=== PATIENT | male | born 1940 | race Caucasian/White ===

== ENCOUNTER 2017-11-01 14:53 | Emergency (ER) | payer MEDICARE ==
[~2017-11-01] VITALS: Ht 177.8 cm; Wt 89.4 kg
[~2017-11-01 14:53] MED LIST: ALBUTEROL-200 PUFFS/ IH; AMLODIPINE BESY10 M1 PO; ASPIRIN325 M1 PO; CARVEDILOL 25MG25 MG PO; CHEWABLE ASPIRI81 MG PO; CIPRO 500MG TA500 MG PO; COLCHICINE 0.60.6 MG PO; COLCHICINE0.6 M3 PO; DARVOCET-N 1001 EACH PO; DIAZEPAM5 MG PO; FLONASE 50 MCG16 GM; INDOCIN25 M2 PO; INDOMETHACIN25 MG PO; LEVAQUIN500 MG PO; LISINOPRIL 20MG20 MG PO; LISINOPRIL40 MG PO; MECLIZINE12.5 MG PO; MECLIZINE25 MG PO; MEDROL 4MG. DOSE4 MG PO; NEXIUM40 MG PO; NORCO 325 MG-51 TAB PO; PREDNISONE 20MG20 MG PO; TEKTURNA300 MG PO; TYLENOL W/CODEI1 TA2 PO; VALIUM 10MG TAB10 MG PO; VERAPAMIL SR 1180 MG PO; ZITHROMAX Z-PA250 M2 PO
--- OUTSIDE RECORDS SUMMARY | 2017-11-01 15:08 | External Medical Summary Rpt | CCD ---
Author Author TATI Address Unknown Phone [email or web address] Purpose Continuity of Care Document - through 2016
--- OUTSIDE RECORDS SUMMARY | 2017-11-01 15:08 | External Medical Summary Rpt | CCD ---
Author Author , TATI KIRKPATRICK Address Unknown Phone Immunization Name Date Rout CVX Reac Dose Comm Prov Is Faci e tion ent ider Refu lity Give sed n Td 03-0 9 999 Hist H109 No H109 (meli 5-19 oric lt), 97 al Info adso rmat rbed ion - Sour ce Unsp ecif ied
--- OUTSIDE RECORDS SUMMARY | 2017-11-01 15:08 | External Medical Summary Rpt | CCD ---
Author Author TATI Address Unknown Phone [email or web address] Purpose Continuity of Care Document - through 2016
--- OUTSIDE RECORDS SUMMARY | 2017-11-01 15:08 | External Medical Summary Rpt | CCD ---
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 [facility], TYPE Hospital II OR UNSPEC TYPE, NOT UNCNTRLD 274.00 274.00 11-22-2013 [facility] AR[facility]ROPATHY [facility] , UNSPECIFIED V14.0 V14.0 11-22-2013 [facility] V14.8 V14.8 11-22-2013 [facility] Allergies, Adverse Reactions, Alerts Type Drug Allergy Adverse Reaction to Substance Substance Reaction Severity PCN (penicillin) I-RASH Intermediate Cephalexin I-ITCHING Intermediate Acetaminophen HALLUCINATE Intermediate Oxycodone Unknown Intermediate Medications Na ND Rx Da Fi Fi Am Da Di Ph RX Ph [facility] me [facility] No te ll ll ou ys ag ar # ys at rm s nt no ma ic us Or Da si cy ia de te s n re d SC 00 01 0 No ED 05 -0 NI 40 1- Lo SO 01 20 ng NE 82 14 er 0 20 Ac ti MG ve TA BL ET AP 00 01 0 No AP 40 -0 /H 60 1- Lo YD 36 20 ng RO 56 14 er CO 2 DO Ac NE ti ve 32 5 MG -5 MG Vital Signs 11-22-2013 11:17 Name Value Interpretat Reference Comment ion Range Body 98.0 [degF] Temperature BP 105 mm[Hg] Diastolic BP Systolic 190 mm[Hg] Heart 75 /min Rate/Pulse O2% 94 % Respiratory 18 /min Rate Encounters Encounter Start End Date Code Location Performer Type Date Emergency RORO Mishra MD (ER) 4 10:29 4 11:23 [facility]
--- OUTSIDE RECORDS SUMMARY | 2017-11-01 15:08 | External Medical Summary Rpt | CCD ---
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
--- NOTE | 2017-11-01 16:47 | Urgent Treatment Center Report ---
History of Present Issue Date/Time Seen by Provider 11/01/17 1634 Visit Reason Pt arrived:Walked Presenting Problem:PT FELL AND INJURED HIS LEFT KNEE ABOUT HOUR AGO. PT ALSO HAS SMALL SKIN TEAR Location if Accident: Onset of symptoms date/time:/ or onset unknown for:MEDICAL HX UNKNOWN Have you (or family members/close friends) recently traveled outside the [place]? N If Yes, where/when: Have you had exposure to infectious disease within the past month? TB? Other? Specify: c/o left lower leg pain and scrape. Fell approx 1 hour before arrival. Tripped on branch and area just below left knee landed on another branch. Immediate swelling and small scrape. Able to stand up immediately and walk to truck. Able to bear weight still following injury. Applied ice prior to arrival and swelling "already improved a lot". pt ready to be discharged and no longer feels he needs an xray. Wearing ale hoses, long socks, long sosa and work pants when fall happened. Denies anything puncturing clothing and feels scrape due to clothes rubbing and not the ground or branch. Source patient Exam Limitations no limitations ALLERGIES Coded Allergies: Penicillins (Mild, 11/01/17) cephalexin (Mild, 11/01/17) oxycodone (Mild, 11/01/17) Home Medications Active Scripts Prednisone (Prednisone 20MG) 20 MG PO BID #10 TAB Prov: 09/06/15 Indomethacin (Indocin) 25 MG PO Q8HP PRN PAIN MANAGEMENT #15 CAP Prov: 07/06/15 Azithromycin (Zithromax) 250 MG PO DAILY #6 TAB Prov: 09/06/15 Reported Medications APAP 300MG W/CODEINE 30MG (Acetaminophen-Cod #3 Tablet) 1 TAB PO TIDP LISINOPRIL (Lisinopril) 40 MG PO DAILY Diazepam (Diazepam 5MG) 5 MG PO TIDP PRN ANXIETY Aspirin 81 MG PO DAILY Esomeprazole Magnesium (Nexium 40MG Cap) 40 MG PO DAILY Carvedilol (Carvedilol 25MG) 50 MG PO BID #120 Albuterol (Albuterol-Hfa Inhaler) 1 PUFF IH QIDP PRN BREATHING MECLIZINE HYDROCHLORIDE (Meclizine HCl) 12.5 MG PO TID Fluticasone Propionate (Flonase 50 Mcg Nasal [place]) 1 SPRAY NA BID Amlodipine Besylate 10 MG PO QHS 30 Days History Medical History General CAD? Yes Angina: No PA: No Hypertension? Yes Hyperlipidemia? Yes CHF? No DVT? No PE? No COPD? No Asthma? Yes Anemia? No GERD? Yes Gastric ulcers? No GI Bleed? No Hernia? No Thyroid Problems? No Hypothyroidism? No CVA? No Seizures? No Diabetes? Yes Insulin Dependent: No Insulin Pump: No Home FSBS? Yes Renal Insuffiency? No UTI? No Stones? No BPH? No GB Disease: No Nephritic Syndrome? No Asplenia? No Hepatitis? No Sickle Cell Disease? No Arthritis? Yes Migraines? No Cataracts? Yes Glaucoma? No MRSA? No HIV? No TB? No Anxiety? Yes Depression? Yes Cancer? No More? No Immunization HX DT/Tetanus > 10 YRS Flu 2013-15FSN Pneumonia Received In Past Surgical Hx Previous Surgery?Y CATARACTS REMOVED-JOSEPH. R EAR-MASTOID Family History Family HX Diabetes No CAD No Hypertension Yes Hyperlipidemia No Cancer Yes TB No Social History Smoking Hx Smoker: Never Smoker Tobacco: No Packs/day < 1 Pack Alcohol Alcohol: No Review of Systems All Other Systems Reviewed and Negative (as appropriate for CC) Musculoskeletal see HPI, denies back pain, denies joint pain, denies joint swelling, denies muscle pain, denies muscle stiffness Skin see HPI, denies change in color Psychiatric/Neurological denies numbness, denies tingling Physical Exam Vital Signs Vital Signs Date Time Temp Pulse Resp B/P Pulse O2 O2 Flow FiO2 Ox Delivery Rate 11/01 1616 98.2 87 16 140/89 99 11/01 1500 98.2 87 16 140/89 99 General Appearance normal appearance, no apparent distress, frustrated due to time here and ready to be discharged Respiratory Status No: respiratory distress. Cardiovascular no peripheral edema Back gait normal Extremities non-tender (left knee, lower leg, thigh), normal range of motion ( left knee), normal inspection (left knee, thigh), mild swelling/contusion left anterior proximal lower leg w/ abrasion in center (see skin); mild tenderness over contusion only Strength 5 Lower Ext (L), 5 Lower Ext (R) Neurologic alert, no motor/sensory deficits Skin 2cm wide x 0.5cm L superficial abrasion left anterior proximal lower leg Medical Decision Making LABS/Meds/Orders Pt receiving controlled substance in ED? No Results/Orders Current Medication Orders Sig/Radha Start time Last Medication Dose Route Stop Time Status Admin Multi-Ingredient 1 UDP ONCE ONE 11/01 1645 DC Ointment TP 11/01 1646 Multi-Ingredient 0 .STK-MED ONE 11/01 1643 DC Ointment TP Progress UTC Progress Notes Date 11/01/17 Comment Discussed xray due to fall. Pt refused. "I don't think anything is broken. The ice helped." Departure Departure Time of Disposition 1641 Disposition DC Home or Self Care(routine) Clinical Impression Primary Impression: Contusion of left lower leg, initial encounter Secondary Impressions: Abrasion, left lower leg, initial encounter Condition STABLE Referrals Annalee Pretty APRN (Family) Monitor closely. FU immediately for new or worsening symptoms ( including but not limited to redness, swelling, red streaking, fever, chills, worsening pain, limited range of motion). Patient Instructions DI for Abrasion, DI for Contusion, How To Perform RICE ( Rest, Ice, Compress, Elevate) Additional Instructions * weight bearing as tolerated. If too painful to ambulate, be sure to follow up immediately. * Rest * ice 15-20 mins 3-4 times a day * Elevate as discussed as much as possible to help reduce swelling and therefore , pain * Keep abrasion clean with mild soap and water. Triple antibiotic ointment as needed. Monitor closely. FU immediately for new or worsening symptoms ( including but not limited to redness, swelling, red streaking, fever, chills). Discharge Counseling Counseled pt/family regarding diagnosis, medications/RX, home care, follow up needs at 1552
[2017-11-01 17:09] VITALS: BP 140/89
== END 2017-11-01 17:09 | disposition home or self-care (01) ==
LOC: ER 14:53 → UTC 15:07
DX: S80.812A Abrasion, left lower leg, initial encounter (principal); W01.0XXA Fall on same level from slipping, tripping and stumbling without subsequent striking against object, initial encounter; Y93.01 Activity, walking, marching and hiking; Y92.9 Unspecified place or not applicable; Z79.82 Long term (current) use of aspirin; Z79.52 Long term (current) use of systemic steroids; Z79.899 Other long term (current) drug therapy; Z79.51 Long term (current) use of inhaled steroids; Z88.5 Allergy status to narcotic agent; Z88.0 Allergy status to penicillin; Z88.8 Allergy status to other drugs, medicaments and biological substances

== ENCOUNTER → 2017-11-03 | Outpatient (CLI) | payer MEDICARE ==
--- NOTE | 2017-11-03 13:55 | RADIOLOGY REPORT PS360 ---
KNEE-3 VIEWS-LT HISTORY: LEFT KNEE PAIN ORDERING PHYSICIAN: Annalee Pretty APRN PATIENT AGE: 77 years COMPARISON: None FINDINGS: No fracture or dislocation. No lytic or blastic change. Normal mineralization. There are mild osteoarthritic changes of the medial compartment and patellofemoral joint. There is increased soft tissue density in the suprapatellar region consistent with knee joint effusion. No other significant findings IMPRESSION: Osteoarthritis with knee joint effusion
== END ==
LOC: RAD 11:52
DX: M25.562 Pain in left knee (principal)